=== PATIENT | female | born 1970 | race Caucasian/White ===

== ENCOUNTER 2016-09-27 06:04 | Emergency (ER) | payer OTHER ==
[~2016-09-27] VITALS: Ht 162.6 cm; Wt 74.0 kg
[~2016-09-27 06:04] MED LIST: GABA300C3 PO; LORA-392 PO; SERT100 PO
[2016-09-27 06:06] VITALS: BP 135/77; PULSE 97; RESP 16; TEMP 98.5; O2SAT 98
[2016-09-27] MEDS ORDERED: CLINDAMYCIN INJ 900 MG in SODIUM CHLORIDE 0.9% INJ 100 ML IV ONE (06:45)
[2016-09-27] MEDS ORDERED: ONDANSETRON HCL 4 MG/2 ML VIAL IV PUSH ONE (06:45)
[2016-09-27] MEDS ORDERED: MORPHINE SULFATE 8 MG/ML INJ IV PUSH ONE (06:45)
[2016-09-27] MEDS ORDERED: CLIN150 PO (06:47)
[2016-09-27] MEDS ORDERED: PERC5TAB12 PO (06:47)
[2016-09-27] MEDS ORDERED: DEXAMETHASONE SOD PHOS 20 MG/5 ML VIAL IV PUSH ONE (07:00)
--- NOTE | 2016-09-27 07:00 | PD ---
HPI Chief Complaint: Oral / Dental Pain or Problem Time Seen by Provider: 06:54 Travel History International Travel<30 days: No Contact w/Intl Traveler<30days: No Traveled to known affect area: No History of Present Illness HPI 45-year-old white female presents emergency department with complaints of a dental abscess and facial swelling. She states that she has had a dental abscess now since Friday. She's had progressive increasing pain, swelling and redness to her face. She denies any fever or chills. No runny nose, cough or congestion. No difficulty swallowing. No change in her voice. She states the pain is mild to moderate. PFSH Past Medical History Anxiety: Yes Cancer: No Cardiovascular Problems: No Diabetes: No Diminished Hearing: No Endocrine: No Genitourinary: No Hepatitis: No Hiatal Hernia: No Immune Disorder: No Musculoskeletal: No Neurologic: Yes (numbness on occasion to l leg) Psychiatric: Yes (depression) Reproductive: No Respiratory: No Thyroid Disease: No Tetanus Vaccination: < 5 Years Influenza Vaccination: No ?: Not Past Surgical History AICD: No Section: Yes (X4 ) Gynecologic Surgery: Yes (4 c sections) Hysterectomy: Yes Joint Replacement: No Pacemaker: No Tonsillectomy: Yes Other Surgery: Yes Social History Alcohol Use: Yes (OCC) Tobacco Use: Yes (1 PPD) Substance Use: Yes (MARIJUANA DAILY) Allergies-Medications (Allergen,Severity, Reaction): Coded Allergies: No Known Allergies (Verified , 09/27/16) Reported Meds & Prescriptions Reported Meds & Active Scripts Active Percocet (Oxycodone-Acetaminophen) 5-325 mg Tab 1 Tab PO Q4H PRN Cleocin (Clindamycin HCl) 150 Mg Cap 300 Mg PO Q6H Ativan (Lorazepam) 0.5 Mg Tab 1 Tab PO Q8HPRN ANXIETY PRN NEEDED FOR ANXIETY Reported Zoloft (Sertraline HCl) 100 Mg Tab 150 Mg PO DAILY Gabapentin 300 Mg Cap 350 Mg PO TID Review of Systems Except as stated in HPI: all other systems reviewed are Neg Physical Exam Narrative GENERAL: Well-developed, well-nourished in no acute distress. Nontoxic appearing. HEAD: Patient has swelling to the right lower mandible. No overlying skin is mildly erythematous and tender. No fluctuance or pointing. EYES: Pupils equal round and reactive. Extraocular motions intact. No scleral icterus. No injection or drainage. ENT: TMs clear without erythema. The external auditory canals clear. Nose: clear . Posterior pharynx is pink and moist. No tonsillar edema or exudate. Uvula midline. Airway patent. Patient has severe periodontal disease with multiple dental caries. She has swelling to the right buccal mucosa along a very decayed tooth. There is gingival edema and erythema. There appears to be an abscess developing. The floor the mouth is normal. She is phonating normally. NECK: Trachea midline.Supple, nontender, moves head freely. No central bony tenderness or spasm. CARDIOVASCULAR: Regular rate and rhythm without murmurs, gallops, or rubs. RESPIRATORY: Clear to auscultation. Breath sounds equal bilaterally. No wheezes , rales, or rhonchi. GASTROINTESTINAL: Abdomen soft, non-tender, nondistended. No hepato-splenomegaly , or palpable masses. No guarding. EXTREMITIES: No clubbing, cyanosis, or edema. No joint tenderness, effusion, or edema noted. BACK: Nontender without deformity or crepitance. No flank tenderness. Data Data Last Documented VS Vital Signs Date Time Temp Pulse Resp B/P Pulse Ox O2 Delivery O2 Flow Rate FiO2 09/27/16 06:06 98.5 97 16 135/77 98 Room Air Orders Complete Blood Count With Diff (09/27/16 06:36) Basic Metabolic Panel (Bmp) (09/27/16 06:36) Iv Access Insert/Monitor (09/27/16 06:36) Clindamycin Inj (Cleocin Inj) (09/27/16 06:45) Morphine Inj (Morphine Inj) (09/27/16 06:45) Ondansetron Inj (Zofran Inj) (09/27/16 06:45) Dexamethasone Inj (Decadron Inj) (09/27/16 07:00) MDM Medical Decision Making Medical Screen Exam Complete: Yes Emergency Medical Condition: Yes Medical Record Reviewed: Yes Differential Diagnosis MDM: Moderate Differential diagnoses: Dental abscess, dental caries, osteitis, cellulitis Narrative Course This is dental abscess with facial cellulitis. An incision and drainage has been performed of the dental abscess with expression of pus. IV access is obtained. Patient's given clindamycin 900 mg IV, Zofran 4 mg IV, morphine 5 a grams IV, and 10 mg of Decadron IV. I discussed the patient's clinical findings and treatment plan with the patient and she agrees with the discharge and close follow-up. She is aware that if symptoms worsen she may return at any time for further evaluation, treatment and possible admission to the hospital. I suspect after having the abscess drained and being given IV antibiotics and steroids she will have a rapid recovery of her symptoms. Procedures Procedure Narrative I&D abscess: After the risks and benefits were discussed the following procedure was performed. The skin is prepped and draped in the usual sterile fashion using Betadine. The abscess is anesthetized with 1% lidocaine with epinephrine and 0.5% Marcaine. After adequate anesthesia, an 11 blade scalpel is used to make a 1 centimeter central stab incision. Perulant material is expressedthe patient tolerated the procedure well. There was no complications. Follow-up instructions were given to the patient. Diagnosis Primary Impression: dental abscess with facial cellulitis Patient Instructions: Narcotic given in the ED, General Instructions Additional Instructions: Rest. Saltwater gargles. Wilmer oil on cotton balls. 3 Advil every 6 hours. Clindamycin and Percocet. Recheck in 24 hours in the ER. follow-up with a dentist as soon as possible. And return to the ER if any problems or worsening. Med/Other Pt SpecificInfo: Prescription(s) given Scripts Oxycodone-Acetaminophen (Percocet)5-325 mg Tab1 Tab PO Q4H PRN (PAIN) #15 TAB Prov:Eduardo Aburto MD 09/27/16 Clindamycin (Cleocin)150 Mg [id number] Mg PO Q6H #80 CAP Prov:Eduardo Aburto MD 09/27/16 Disposition: 01 DISCHARGE HOME Condition: Stable Francois Londono Sep 27, 2016 07:00
[2016-09-27 07:05] LABS: AUTOMATED NEUTROPHIL # 14.5 TH/MM3 (1.8-7.7); BASOPHIL # 0.1 TH/MM3 (0-0.2); BASOPHIL % 0.6 % (0.0-2.0); EOSINOPHIL % 0.2 % (0.0-4.0); HEMATOCRIT 45.8 % (35.0-46.0); HEMO FLAGS DIFF FINAL; LYMPH % 9.2 % (9.0-44.0); LYMPHOCYTE # 1.6 TH/MM3 (1.0-4.8); MEAN CELL VOLUME 87.4 FL (80.0-100.0); MEAN CORPUSCULAR HEMOGLOBIN 29.8 PG (27.0-34.0); MEAN CORPUSCULAR HGB CONC 34.1 % (32.0-36.0); MONO % 7.5 % (0.0-8.0); NEUT % 82.5 % (16.0-70.0); PLATELET COUNT 322 TH/MM3 (150-450); RED BLOOD COUNT 5.24 MIL/MM3 (4.00-5.30); RED CELL DISTRIBUTION WIDTH 14.1 % (11.6-17.2); WHITE BLOOD COUNT 17.6 TH/MM3 (4.0-11.0)
[2016-09-27 07:22] LABS: BICARBONATE 26.7 MEQ/L (21.0-32.0); POTASSIUM 3.4 MEQ/L (3.5-5.1)
== END 2016-09-27 08:28 | disposition home or self-care (01) ==
LOC: NEPB 06:04
DX: K04.7 Periapical abscess without sinus (principal); L03.211 Cellulitis of face; F17.200 Nicotine dependence, unspecified, uncomplicated; Z86.69 Personal history of other diseases of the nervous system and sense organs; Z86.59 Personal history of other mental and behavioral disorders
CPT/HCPCS: 41800; 80048; 85025; 96365; 96375; 99283; J1100; J2270; J2405

== ENCOUNTER 2017-05-08 18:21 | Emergency (ER) | payer OTHER ==
[~2017-05-08] VITALS: Ht 162.6 cm; Wt 72.7 kg
[~2017-05-08 18:21] MED LIST changes: +CLIN150 PO; +PERC5TAB12 PO
[2017-05-08 18:23] VITALS: BP 143/77; PULSE 104; RESP 24; TEMP 98.3; O2SAT 100
[2017-05-08 18:58] VITALS: BP 121/84; PULSE 105; RESP 16; TEMP 98.2; O2SAT 100
--- NOTE | 2017-05-08 19:42 | RADRPT ---
EXAM DATE/TIME: 05/08/2017 19:31 [facility] COMPARISON: CHEST SINGLE AP, April 04, 2015, 6:15. INDICATIONS : Chest pains today. MEDICAL HISTORY : None. SURGICAL HISTORY : None. ENCOUNTER: Initial ACUITY: 1 day PAIN SCORE: 4/10 LOCATION: Bilateral chest FINDINGS: A single view of the chest demonstrates the lungs to be symmetrically aerated without evidence of mas s, infiltrate or effusion. The cardiomediastinal contours are unremarkable. Osseous structures are intact. CONCLUSION: No evidence of acute cardiopulmonary disease. José Antonio Tapia MD on May 08, 2017 at 19:40 Board Certified Radiologist. This report was verified electronically.
[2017-05-08 20:42] LABS: AUTOMATED NEUTROPHIL # 8.5 TH/MM3 (1.8-7.7); BASOPHIL # 0.1 TH/MM3 (0-0.2); BASOPHIL % 0.5 % (0.0-2.0); EOSINOPHIL # 0.2 TH/MM3 (0-0.4); EOSINOPHIL % 1.4 % (0.0-4.0); HEMATOCRIT 46.1 % (35.0-46.0); HEMO FLAGS DIFF FINAL; LYMPH % 15.4 % (9.0-44.0); LYMPHOCYTE # 1.8 TH/MM3 (1.0-4.8); MEAN CELL VOLUME 87.9 FL (80.0-100.0); MEAN CORPUSCULAR HEMOGLOBIN 29.3 PG (27.0-34.0); MEAN CORPUSCULAR HGB CONC 33.4 % (32.0-36.0); MONO % 8.5 % (0.0-8.0); NEUT % 74.2 % (16.0-70.0); PLATELET COUNT 257 TH/MM3 (150-450); RED BLOOD COUNT 5.24 MIL/MM3 (4.00-5.30); RED CELL DISTRIBUTION WIDTH 14.2 % (11.6-17.2); WHITE BLOOD COUNT 11.5 TH/MM3 (4.0-11.0)
--- NOTE | 2017-05-08 20:54 | PD ---
HPI Chief Complaint: Chest Pain Time Seen by Provider: 20:45 Travel History International Travel<30 days: No Contact w/Intl Traveler<30days: No Traveled to known affect area: No History of Present Illness HPI 46-year-old female here with PD under arrest complaining of chest pain. The patient reports having had palpitations, shortness of breath, and sharp chest pain that felt as though someone was stabbing her in the chest with thousands of needles. At time of my assessment the patient is chest pain-free. She is a smoker and reports history of anxiety. She denies any known history of cardiac disease. No paresthesias or motor deficits. PFSH Past Medical History Anxiety: Yes Cancer: No Cardiovascular Problems: No Diabetes: No Diminished Hearing: No Endocrine: No Genitourinary: No Hepatitis: No Hiatal Hernia: No Immune Disorder: No Musculoskeletal: No Neurologic: Yes (numbness on occasion to l leg) Psychiatric: Yes (depression) Reproductive: No Respiratory: No Thyroid Disease: No ?: Not Past Surgical History AICD: No Section: Yes (X4 ) Gynecologic Surgery: Yes (4 c sections) Hysterectomy: Yes Joint Replacement: No Pacemaker: No Tonsillectomy: Yes Other Surgery: Yes Social History Alcohol Use: Yes (OCC) Tobacco Use: Yes (1 PPD) Substance Use: Yes (MARIJUANA DAILY) Allergies-Medications (Allergen,Severity, Reaction): Coded Allergies: No Known Allergies (Verified , 09/27/16) Reported Meds & Prescriptions Reported Meds & Active Scripts Active Percocet (Oxycodone-Acetaminophen) 5-325 mg Tab 1 Tab PO Q4H PRN Cleocin (Clindamycin HCl) 150 Mg Cap 300 Mg PO Q6H Ativan (Lorazepam) 0.5 Mg Tab 1 Tab PO Q8HPRN ANXIETY PRN NEEDED FOR ANXIETY Reported Zoloft (Sertraline HCl) 100 Mg Tab 150 Mg PO DAILY Gabapentin 300 Mg Cap 350 Mg PO TID Review of Systems Except as stated in HPI: all other systems reviewed are Neg Physical Exam Narrative GENERAL: Well-developed, well-nourished, comfortable, no apparent distress. SKIN: Focused skin assessment warm/dry. HEAD: Atraumatic. Normocephalic. EYES: Pupils equal and round. No scleral icterus. No injection or drainage. ENT: Mucous membranes pink and moist. NECK: Trachea midline. No JVD. CARDIOVASCULAR: Regular rate and rhythm. Distal pulses brisk and equal bilaterally. RESPIRATORY: No accessory muscle use. Mild end expiratory wheezes bilaterally. Breath sounds equal bilaterally. GASTROINTESTINAL: Abdomen soft, non-tender, nondistended. MUSCULOSKELETAL: No obvious deformities. No clubbing. No cyanosis. No edema. NEUROLOGICAL: Awake and alert. No obvious cranial nerve deficits. Motor grossly within normal limits. Normal speech. PSYCHIATRIC: Appropriate mood and affect; insight and judgment normal. Data Data Last Documented VS Vital Signs Date Time Temp Pulse Resp B/P (MAP) Pulse Ox O2 Delivery O2 Flow Rate FiO2 05/09/17 01:40 98.3 70 14 126/61 (82) 99 05/08/17 18:23 Room Air Orders Orders Chest, Single Ap (05/08/17 ) Electrocardiogram (05/08/17 ) Complete Blood Count With Diff (05/08/17 19:53) Comprehensive Metabolic Panel (05/08/17 19:53) Act Partial Throm Time (Ptt) (05/08/17 19:53) Prothrombin Time / Inr (Pt) (05/08/17 19:53) Troponin I (05/08/17 19:53) Ckmb (Isoenzyme) Profile (05/08/17 20:45) Aspirin Chew (Aspirin Chew) (05/08/17 21:00) Albuterol-Ipratropium Neb (Duoneb Neb) (05/08/17 21:00) CKMB (05/08/17 20:03) CKMB% (05/08/17 20:03) Troponin I (05/08/17 23:00) Ckmb (Isoenzyme) Profile (05/08/17 23:00) Electrocardiogram (05/08/17 23:02) Labs Laboratory Tests Test 05/08/17 20:03 05/08/17 23:00 White Blood Count 11.5 TH/MM3 Red Blood Count 5.24 MIL/MM3 Hemoglobin 15.4 GM/DL Hematocrit 46.1 % Mean Corpuscular Volume 87.9 FL Mean Corpuscular Hemoglobin 29.3 PG Mean Corpuscular Hemoglobin Concent 33.4 % Red Cell Distribution Width 14.2 % Platelet Count 257 TH/MM3 Mean Platelet Volume 8.8 FL Neutrophils (%) (Auto) 74.2 % Lymphocytes (%) (Auto) 15.4 % Monocytes (%) (Auto) 8.5 % Eosinophils (%) (Auto) 1.4 % Basophils (%) (Auto) 0.5 % Neutrophils # (Auto) 8.5 TH/MM3 Lymphocytes # (Auto) 1.8 TH/MM3 Monocytes # (Auto) 1.0 TH/MM3 Eosinophils # (Auto) 0.2 TH/MM3 Basophils # (Auto) 0.1 TH/MM3 CBC Comment DIFF FINAL Differential Comment Prothrombin Time 10.6 SEC Prothromb Time International Ratio 1.0 RATIO Activated Partial Thromboplast Time 26.2 SEC Blood Urea Nitrogen 14 MG/DL Creatinine 0.63 MG/DL Random Glucose 86 MG/DL Total Protein 6.8 GM/DL Albumin 3.3 GM/DL Calcium Level 9.6 MG/DL Alkaline Phosphatase 86 U/L Aspartate Amino Transf (AST/SGOT) 14 U/L Alanine Aminotransferase (ALT/SGPT) 20 U/L Total Bilirubin 0.3 MG/DL Sodium Level 139 MEQ/L Potassium Level 3.6 MEQ/L Chloride Level 108 MEQ/L Carbon Dioxide Level 22.8 MEQ/L Anion Gap 8 MEQ/L Estimat Glomerular Filtration Rate 103 ML/MIN Total Creatine Kinase 122 U/L 66 U/L Creatine Kinase MB 2.0 NG/ML Troponin I LESS THAN 0.02 NG/ML LESS THAN 0.02 NG/ML MDM Medical Decision Making Medical Screen Exam Complete: Yes Emergency Medical Condition: Yes Medical Record Reviewed: Yes Interpretation(s) EKG: Sinus, rate 84, normal axis, normal intervals, no acute ischemic abnormality. Differential Diagnosis ACS, pneumothorax, peritonitis, PE, pneumonia, COPD, anxiety/panic attack Narrative Course [employer] crashed during the patient's visit, and the patient was discharged using downtime charts. Vitals reviewed. Labs reviewed. Delta troponin is negative. Chest xray shows no acute cardiopulmonary disease. The patient was provided one duoneb treatment for slight wheezing. History of smoking. On reassessment she is sleeping comfortably. I do not believe her chest pain is cardiopulmonary in nature. She is stable for discharge with PD to senior care with PMD follow-up this week. She was informed on when to return to the ED. She verbalized understanding and agreement with plan. Diagnosis Primary Impression: Atypical chest pain Referrals: Primary Care Physician 3 days Disposition: [address] [facility] ENFORCEMNT Condition: Stable Jameel Aldana MD May 08, 2017 20:53
[2017-05-08] MEDS ORDERED: RESP: ALBUTEROL 2.5 MG/IPRATROPIUM 0.5 MG NEB (SCH) INH ONE (21:00)
[2017-05-08] MEDS ORDERED: ASPIRIN 81 MG CHEW TAB PO ONE (21:00)
[2017-05-08 21:02] LABS: APTT (PATIENT) 26.2 SEC (24.3-30.1); PROTHROMBIN TIME - PATIENT 10.6 SEC (9.8-11.6)
[2017-05-08 21:03] LABS: ANION GAP 8 MEQ/L (5-15); AST (GOT) 14 U/L (15-37); BICARBONATE 22.8 MEQ/L (21.0-32.0); BLOOD UREA NITROGEN 14 MG/DL (7-18); CHLORIDE 108 MEQ/L (98-107); GLOMERULAR FILTRATION RATE 103 ML/MIN (>89); POTASSIUM 3.6 MEQ/L (3.5-5.1); SODIUM (NA) 139 MEQ/L (136-145)
[2017-05-08 21:08] LABS: ALKALINE PHOSPHATASE 86 U/L (45-117); ALT (GPT) 20 U/L (10-53); TOTAL BILIRUBIN ADULT 0.3 MG/DL (0.2-1.0)
[2017-05-08 21:32] LABS: CREATINE KINASE 122 U/L (26-192)
[2017-05-09 01:40] VITALS: BP 126/61; TEMP 98.3
[2017-05-09 05:20] LABS: CREATINE KINASE 66 U/L (26-192)
--- NOTE | 2017-05-09 11:42 | EKG ---
Date Performed: 05/08/2017 Time Performed: 23:02:41 PTAGE: 46 years EKG: SINUS BRADYCARDIA WITH SINUS ARRHYTHMIA BORDERLINE ECG Compared to prior tracing no signifi cant change PREVIOUS TRACING DOCTOR: Vini Rowe Interpretating Date/Time 05/09/2017 11:40:01
--- NOTE | 2017-05-09 11:42 | EKG ---
Date Performed: 05/08/2017 Time Performed: 19:11:41 PTAGE: 46 years EKG: Sinus rhythm NORMAL ECG Compared to prior tracing no significant change PREVIOUS TRACING : 04/04/2015 06.08 DOCTOR: Vini Rowe Interpretating Date/Time 05/09/2017 11:40:14
== END 2017-05-09 01:40 ==
LOC: NEPD 18:21
DX: R07.89 Other chest pain (principal); R00.2 Palpitations; R06.02 Shortness of breath; R00.1 Bradycardia, unspecified; I49.8 Other specified cardiac arrhythmias; F41.9 Anxiety disorder, unspecified; F32.9 Major depressive disorder, single episode, unspecified; F17.200 Nicotine dependence, unspecified, uncomplicated; Z79.899 Other long term (current) drug therapy
CPT/HCPCS: 71010; 80053; 82550; 82552; 84484; 85025; 85610; 85730; 93005; 94664

== ENCOUNTER 2018-01-10 13:49 | Emergency (ER) | payer OTHER ==
[~2018-01-10] VITALS: Ht 160 cm; Wt 70.0 kg
[2018-01-10 13:53] VITALS: BP 150/73; PULSE 81; RESP 16; TEMP 99.1; O2SAT 100
[2018-01-10] MEDS ORDERED: CELE40TA PO (14:11)
[2018-01-10] MEDS ORDERED: GABA300C5 PO (14:11)
[2018-01-10] MEDS ORDERED: TRAZ100T10 PO (14:11)
[2018-01-10] MEDS ORDERED: AMOXICILLIN/CLAVULANATE K 875 MG TAB PO ONE (14:45)
[2018-01-10] MEDS ORDERED: ACETAMINOPHEN/HYDROcodone 325 MG/5 MG TAB PO ONE (14:45)
[2018-01-10] MEDS ORDERED: TETANUS/DIPHTHERIA TOXOID ADULT 0.5 ML VIAL IM ONE (14:45)
--- NOTE | 2018-01-10 15:30 | PD ---
HPI . Dog bite Chief Complaint: Bite or Sting Time Seen by Provider: 14:21 Travel History International Travel<30 days: No Contact w/Intl Traveler<30days: No Traveled to known affect area: No History of Present Illness HPI Patient presents with a dog bite to her scalp. It was a known dog. She states that she had just sat on the floor to pet the dog when the dog bit her. Her tetanus is not up-to-date. She is complaining with pain which she rates 10/10. The incident occurred just prior to arrival. PFSH Past Medical History Anxiety: Yes Depression: Yes Cancer: No Cardiovascular Problems: No Diabetes: No Diminished Hearing: No Endocrine: No Genitourinary: No Hepatitis: No Hiatal Hernia: No Immune Disorder: No Musculoskeletal: No Neurologic: Yes (numbness on occasion to l leg) Psychiatric: Yes (depression) Reproductive: No Respiratory: No Thyroid Disease: No ?: Not Past Surgical History AICD: No Section: Yes (X4 ) Gynecologic Surgery: Yes (4 c sections) Hysterectomy: Yes Joint Replacement: No Pacemaker: No Tonsillectomy: Yes Other Surgery: Yes Social History Alcohol Use: Yes (OCC) Tobacco Use: Yes (1 PPD) Substance Use: Yes (MARIJUANA DAILY) Allergies-Medications (Allergen,Severity, Reaction): Coded Allergies: No Known Allergies (Verified , 09/27/16) Reported Meds & Prescriptions Reported Meds & Active Scripts Active Reported Celexa (Citalopram Hydrobromide) 40 Mg Tab 40 Mg PO DAILY Trazodone (Trazodone HCl) 100 Mg Tablet 100 Mg PO HS Gabapentin 300 Mg Cap 300 Mg PO TID Review of Systems Except as stated in HPI: all other systems reviewed are Neg Physical Exam Narrative GENERAL: Awake and alert and in no acute distress. SKIN: Warm and dry. She has a large, flap-like laceration to the posterior scalp. HEAD: Normocephalic. EYES: Pupils are equal. Extraocular movements are intact. NECK: Normal range of motion. CARDIOVASCULAR: Regular rate and rhythm. RESPIRATORY: Nonlabored respirations. MUSCULOSKELETAL: Atraumatic. NEUROLOGICAL: Nonfocal. PSYCHIATRIC: Appropriate mood and affect. Data Data Last Documented VS Vital Signs Date Time Temp Pulse Resp B/P (MAP) Pulse Ox O2 Delivery O2 Flow Rate FiO2 01/10/18 13:53 99.1 81 16 150/73 (98) 100 Orders Orders Tetanus/Diphtheria Tox Adult (Tetanus/Di (01/10/18 14:45) Acetamin-Hydrocod 325-5 Mg ([place] 5-325 (01/10/18 14:45) Amoxicil-Clavulanate (Augmentin) (01/10/18 14:45) Wound Care (01/10/18 14:43) MDM Medical Decision Making Medical Screen Exam Complete: Yes Emergency Medical Condition: Yes Differential Diagnosis Differential diagnosis of animal bite includes but is not limited to wound, wound infection, retained foreign body, open fracture, sepsis, rabies. Narrative Course This patient presents with a dog bite to her scalp. Normally, I would not repair this. However, this is a large flap. The patient's tetanus has been updated. She has been given a dose of prophylactic Augmentin here. She has been given a [place] here. She is being discharged home with instructions to gently wash the wound daily with Erasmo's baby shampoo. She should return in 1 week for staple removal. E force has been queried and reviewed. Procedures Procedure Narrative LACERATION LOCATION: Scalp LENGTH: 9 cm NUMBER OF STITCHES/JEFFY: 6 REPAIR: The wound was initially cleaned by the patient's nurse. The laceration was infiltrated with 1% plain lidocaine. The wound was copiously irrigated and explored. There was a lot of hair in the wound which was removed. There was also some blood clot in the wound which was removed. The skull is palpable with no obvious step-off palpated. The wound was closed using jeffy. This was a single layer repair. Patient tolerated the procedure well. Diagnosis Primary Impression: Dog bite Qualified Codes: W54.0XXA - Bitten by dog, initial encounter Additional Impression: Scalp laceration Qualified Codes: S01.01XA - Laceration without foreign body of scalp, initial encounter Patient Instructions: Animal Bite (DC), General Instructions Med/Other Pt SpecificInfo: Prescription(s) given Scripts Hydrocodone-Acetaminophen ([place]) 5 Mg-325 Mg Tab 1 TAB PO Q4H Y for PAIN, #12 TAB 0 Refills Prov: Evelia Pyle MD 01/10/18 Amoxicillin-Clavulanate (Augmentin) 875-125 Mg Tab 1 TAB PO BID for Infection, #10 TAB 0 Refills Prov: Evelia Pyle MD 01/10/18 Disposition: 01 DISCHARGE HOME Condition: Stable Evelia Pyle MD January 10, 2018 15:30
[2018-01-10] MEDS ORDERED: NORC5TAB PO (15:33)
[2018-01-10] MEDS ORDERED: AUGM875T3 PO (15:33)
== END 2018-01-10 15:56 | disposition home or self-care (01) ==
LOC: NEPD 13:49
DX: S01.05XA Open bite of scalp, initial encounter (principal); W54.0XXA Bitten by dog, initial encounter; Z23 Encounter for immunization
CPT/HCPCS: 12004; 12015; 90471; 90714

== ENCOUNTER 2018-01-12 09:14 | Emergency (ER) | payer OTHER ==
[~2018-01-12] VITALS: Ht 162.6 cm; Wt 64.5 kg
[~2018-01-12 09:14] MED LIST changes: +AUGM875T3 PO; +CELE40TA PO; +GABA300C5 PO; +NORC5TAB PO; +TRAZ100T10 PO
[2018-01-12 09:17] VITALS: BP 143/71; PULSE 85; RESP 16; TEMP 99.6; O2SAT 98
--- NOTE | 2018-01-12 09:47 | PD ---
HPI Chief Complaint: Bite or Sting Time Seen by Provider: 09:26 Travel History International Travel<30 days: No Contact w/Intl Traveler<30days: No Traveled to known affect area: No History of Present Illness HPI 47-year-old female presents the ED for evaluation of scalp laceration sustained during a dog bite yesterday. Patient was seen in the ED yesterday and had a laceration repair of posterior scalp wound. She states that after she got home and washed her hair she relies she had a laceration of the right lateral occiput. She endorses compliance with antibiotics and pain medications. Her tetanus immunization was updated at previous visit. PFSH Past Medical History Anxiety: Yes Depression: Yes Cancer: No Cardiovascular Problems: No Diabetes: No Diminished Hearing: No Endocrine: No Genitourinary: No Hepatitis: No Hiatal Hernia: No Immune Disorder: No Musculoskeletal: No Neurologic: Yes (numbness on occasion to l leg) Psychiatric: Yes (depression) Reproductive: No Respiratory: No Thyroid Disease: No Past Surgical History AICD: No Section: Yes (X4 ) Gynecologic Surgery: Yes (4 c sections) Hysterectomy: Yes Joint Replacement: No Pacemaker: No Tonsillectomy: Yes Other Surgery: Yes Social History Alcohol Use: Yes (OCC) Tobacco Use: Yes (1 PPD) Substance Use: Yes (MARIJUANA DAILY) Allergies-Medications (Allergen,Severity, Reaction): Coded Allergies: No Known Allergies (Verified , 09/27/16) Reported Meds & Prescriptions Reported Meds & Active Scripts Active [place] (Hydrocodone-Acetaminophen) 5 Mg-325 Mg Tab 1 Tab PO Q4H PRN Augmentin (Amoxicillin-Clavulanate) 875-125 Mg Tab 1 Tab PO BID Reported Celexa (Citalopram Hydrobromide) 40 Mg Tab 40 Mg PO DAILY Trazodone (Trazodone HCl) 100 Mg Tablet 100 Mg PO HS Gabapentin 300 Mg Cap 300 Mg PO TID Review of Systems Except as stated in HPI: all other systems reviewed are Neg Physical Exam Narrative GENERAL: Well-nourished, well-developed pleasant white female no acute distress. SKIN: Focused skin assessment warm/dry. HEAD: Normocephalic. 6 cm U-shaped laceration of the posterior occiput with jeffy in place. Well-healing and without sign of infection. There is a 6 cm linear laceration of the right lateral occiput. No active bleeding. No visible foreign body. There is minimal bruising posterior to the right ear. ENT: Pearly velázquez tympanic membranes bilaterally. EYES: No scleral icterus. No injection or drainage. NECK: Supple, trachea midline. No JVD or lymphadenopathy. CARDIOVASCULAR: Regular rate and rhythm without murmurs, gallops, or rubs. RESPIRATORY: Breath sounds equal bilaterally. No accessory muscle use. GASTROINTESTINAL: Abdomen soft, non-tender, nondistended. MUSCULOSKELETAL: No cyanosis, or edema. BACK: Nontender without obvious deformity. No CVA tenderness. Data Data Last Documented VS Vital Signs Date Time Temp Pulse Resp B/P (MAP) Pulse Ox O2 Delivery O2 Flow Rate FiO2 01/12/18 09:17 99.6 85 16 143/71 (95) 98 Orders Orders Ed Discharge Order (01/12/18 09:47) MDM Medical Decision Making Medical Screen Exam Complete: Yes Emergency Medical Condition: Yes Medical Record Reviewed: Yes Differential Diagnosis Dog bite versus scalp laceration versus wound evaluation versus other Narrative Course 47-year-old female presents the ED for evaluation of scalp laceration sustained during a dog bite yesterday. Patient was seen in the ED yesterday and had a laceration repair of posterior scalp wound. She states that after she got home and washed her hair she relies she had a laceration of the right lateral occiput. She endorses compliance with antibiotics and pain medications. Her tetanus immunization was updated at previous visit. Vitals reviewed. The laceration repair of the posterior scalp is intact and looks to be well healing. Patient does have quite thick hair. There is a 6 cm laceration of the lateral occiput. This was rinsed with 1 L normal saline and loosely approximated with 4 jeffy. See my procedure note for details. Did to continue antibiotics and pain medications as previously prescribed, monitor the wounds for signs of infection, return for staple removal in 7-10 days. She indicated understanding of instructions. She is stable and discharged home. Procedures Procedure Narrative LACERATION LOCATION: Right lateral scalp LENGTH: 6 cm NUMBER OF STITCHES/JEFFY: 4 REPAIR: The wound was cleaned by the nurse at bedside. The laceration was infiltrated with 1% lidocaine with epinephrine. The wound was copiously irrigated with 1 L normal saline and explored without evidence of foreign body, tendon injury or neurovascular injury. The wound was closed using surgical jeffy. This was a single layer repair. The patient was advised to keep the wound clean and dry. Patient tolerated the procedure well. Diagnosis Primary Impression: Scalp laceration Qualified Codes: S01.01XA - Laceration without foreign body of scalp, initial encounter Additional Impression: Dog bite Qualified Codes: W54.0XXD - Bitten by dog, subsequent encounter Referrals: Primary Care Physician Additional Instructions: Rest, hydrate. You may shower normally. Do not submerge the wound. After bathing pat of wound dry. Allow the wound to air dry for 10-15 minutes. Take the antibiotics as they are prescribed, even if your symptoms resolved. Continue pain medications as previously prescribed. You may switch to OTC pain medication such as ibuprofen or Tylenol if pain is less than 5 out of 10 on the pain scale. Monitor for signs of infection as discussed. Staple removal in 7-10 days. Return to the ED for any urgent or emergent medical condition. Disposition: 01 DISCHARGE HOME Condition: Stable Shellie Beck January 12, 2018 09:47
[2018-01-12] MEDS ORDERED: LIDOCAINE 1%/EPINEPHrine 1:100,000 SOLN 20 ML VIAL INFIL ONE (10:30)
== END 2018-01-12 10:27 | disposition home or self-care (01) ==
LOC: NEPK 09:14
DX: S01.01XA Laceration without foreign body of scalp, initial encounter (principal); W54.0XXA Bitten by dog, initial encounter
CPT/HCPCS: 12002

== ENCOUNTER 2018-01-21 11:03 | Emergency (ER) | payer OTHER ==
[~2018-01-21] VITALS: Ht 162.6 cm; Wt 65.0 kg
[~2018-01-21 11:03] MED LIST changes: -CLIN150 PO; -GABA300C3 PO; -LORA-392 PO; -PERC5TAB12 PO; -SERT100 PO
[2018-01-21 11:09] VITALS: BP 125/71; PULSE 83; RESP 16; TEMP 98.7
--- NOTE | 2018-01-21 11:39 | PD ---
HPI Chief Complaint: Wound/Suture/Staple Re-Check Time Seen by Provider: 11:28 Travel History International Travel<30 days: No Contact w/Intl Traveler<30days: No Traveled to known affect area: No History of Present Illness HPI 47-year-old female presents to the emergency department for staple removal. Patient is here on January 10 and again on January 12 due to dog bite to the scalp. She had 6 jeffy placed on January 10. She then noticed another laceration returned and had 4 more jeffy placed. She denies any complications. No fevers or chills. No drainage. She has no other symptoms or complaints. Mild severity. PFSH Past Medical History Anxiety: Yes Depression: Yes Cancer: No Cardiovascular Problems: No Diabetes: No Diminished Hearing: No Endocrine: No Genitourinary: No Hepatitis: No Hiatal Hernia: No Immune Disorder: No Musculoskeletal: No Neurologic: Yes (numbness on occasion to l leg) Psychiatric: Yes (depression) Reproductive: No Respiratory: No Thyroid Disease: No ?: Not Past Surgical History AICD: No Section: Yes (X4 ) Gynecologic Surgery: Yes (4 c sections) Hysterectomy: Yes Joint Replacement: No Pacemaker: No Tonsillectomy: Yes Other Surgery: Yes Social History Alcohol Use: Yes (OCC) Tobacco Use: Yes (1 PPD) Substance Use: Yes (MARIJUANA DAILY) Allergies-Medications (Allergen,Severity, Reaction): Coded Allergies: No Known Allergies (Verified Adverse Reaction, Unknown, 01/21/18) Reported Meds & Prescriptions Reported Meds & Active Scripts Active [place] (Hydrocodone-Acetaminophen) 5 Mg-325 Mg Tab 1 Tab PO Q4H PRN Augmentin (Amoxicillin-Clavulanate) 875-125 Mg Tab 1 Tab PO BID Reported Celexa (Citalopram Hydrobromide) 40 Mg Tab 40 Mg PO DAILY Trazodone (Trazodone HCl) 100 Mg Tablet 100 Mg PO HS Gabapentin 300 Mg Cap 300 Mg PO TID Review of Systems Except as stated in HPI: all other systems reviewed are Neg Physical Exam Narrative GENERAL: Well-nourished, well-developed female patient, ambulatory. Afebrile. SKIN: Focused skin assessment warm/dry. Patient has 2 healing lacerations to the scalp. [place] are in place. There is no surrounding erythema. No drainage. No evidence of infection. HEAD: Normocephalic. EYES: No scleral icterus. No injection or drainage. RESPIRATORY: No accessory muscle use. MUSCULOSKELETAL: No cyanosis, or edema. Data Data Last Documented VS Vital Signs Date Time Temp Pulse Resp B/P (MAP) Pulse Ox O2 Delivery O2 Flow Rate FiO2 01/21/18 11:09 98.7 83 16 125/71 (89) Orders Orders Ed Discharge Order (01/21/18 11:39) MDM Medical Decision Making Medical Screen Exam Complete: Yes Emergency Medical Condition: Yes Medical Record Reviewed: Yes Differential Diagnosis Staple removal versus dehiscence versus cellulitis Narrative Course 47-year-old female presents to the emergency department for staple removal. [place] removed without difficulty. No evidence of complication. Patient is stable for discharge. Diagnosis Primary Impression: Removal of jeffy Referrals: Primary Care Physician as needed Patient Instructions: General Instructions, Stitches Removal (ED) Additional Instructions: Clean gently with soap and water. Do not scrub the area. Follow-up with your primary care physician as needed Return to the emergency department for any emergent complaints. Med/Other Pt SpecificInfo: No Change to Meds Disposition: 01 DISCHARGE HOME Condition: Stable Taryn Bowers January 21, 2018 11:39
== END 2018-01-21 11:53 | disposition home or self-care (01) ==
LOC: NEPD 11:03
DX: S01.05XD Open bite of scalp, subsequent encounter (principal); W54.0XXD Bitten by dog, subsequent encounter; Z48.02 Encounter for removal of sutures
CPT/HCPCS: 99281